=== PATIENT | female | born 1990 | race Caucasian/White ===

== ENCOUNTER 2016-10-24 08:17 | Emergency (ER) | payer OTHER ==
[~2016-10-24] VITALS: Ht 175.3 cm; Wt 108.0 kg
[~2016-10-24 08:17] MED LIST: CEPH500 PO; MACR100C PO; PROM25R PR; PROM25SU8 PO; ZOFR4TAB3 SL
[2016-10-24 08:32] VITALS: BP 96/66; PULSE 100; RESP 16; TEMP 97.9; O2SAT 97
[2016-10-24] MEDS ORDERED: PREN29TA PO (08:34)
--- NOTE | 2016-10-24 09:06 | PD ---
HPI Chief Complaint: ENT Complaint Time Seen by Provider: 08:55 Travel History International Travel<30 days: No Contact w/Intl Traveler<30days: No Traveled to known affect area: No History of Present Illness HPI The patient is a 26-year-old female who is currently 25 weeks who complains of cough and congestion. The patient is a 3 day history of cough and cold symptoms with nasal congestion, sore throat, dry nonproductive cough. The patient also complains of myalgias, but denies any nausea, vomiting, diarrhea, or abdominal pain. Symptoms are moderate, not alleviated with Tylenol, there are no known exacerbating factors. Patient complains of chills and sweats, but is unsure if she is had a fever. The patient is followed by her midlevel provider, Dr. Lewis. [facility] Past Medical History Autoimmune Disease: No Blood Disorders: No Anxiety: Yes Depression: Yes Cardiovascular Problems: No Diminished Hearing: No Gastrointestinal Disorders: No Genitourinary: Yes (FREQ. UTI'S) Musculoskeletal: No Neurologic: Yes Psychiatric: No Reproductive: Yes (OVARIAN CYST) Respiratory: No Immunizations Current: Yes Seizures: Yes (? PSEUDO SZ) Sickle Cell Disease: No ?: LMP: 25 WEEKS : 5 Para: 2 Miscarriage: 2 Past Surgical History Other Surgery: Yes (RIGHT JAW FRACTURE REPAIR) Social History Alcohol Use: No Tobacco Use: No Substance Use: No Allergies-Medications (Allergen,Severity, Reaction): Coded Allergies: No Known Allergies (Unverified , 10/24/16) Reported Meds & Prescriptions Reported Meds & Active Scripts Active Reported Plus Iron 29-1 mg ( Vit-Iron Carbonyl) 1 Tab Tab 1 Tab PO DAILY Review of Systems Except as stated in HPI: all other systems reviewed are Neg General / Constitutional: Positive: Chills, No: Fever HENT: Positive: Sore Throat, Congestion Respiratory: Positive: Cough Gastrointestinal: No: Nausea, Vomiting, Diarrhea, Abdominal Pain Genitourinary: No: Dysuria Musculoskeletal: Positive: Myalgias Physical Exam Narrative GENERAL: Awake, alert, 26-year-old female who appears her stated age and is in no acute respiratory distress. SKIN: Warm and dry. HEAD: Atraumatic. Normocephalic. EYES: Pupils equal and round. No scleral icterus. No injection or drainage. ENT: No nasal bleeding or discharge. Oropharynx reveals erythema but no exudate. TMs are dull with no erythema or bulging. EACs are clear. NECK: Trachea midline. No JVD. Well-healed scar in the right neck over the mandible, no meningeal signs. CARDIOVASCULAR: Regular rate and rhythm. No murmur appreciated. RESPIRATORY: No accessory muscle use. Clear to auscultation. Breath sounds equal bilaterally. MUSCULOSKELETAL: No obvious deformities. No clubbing. No cyanosis. No edema. NEUROLOGICAL: Awake and alert. No obvious cranial nerve deficits. Motor grossly within normal limits. Normal speech. PSYCHIATRIC: Appropriate mood and affect; insight and judgment normal. Data Data Last Documented VS Vital Signs Date Time Temp Pulse Resp B/P Pulse Ox O2 Delivery O2 Flow Rate FiO2 10/24/16 08:54 16 10/24/16 08:32 97.9 100 96/66 97 Orders Influenzae A/B Antigen (10/24/16 09:00) Group A Rapid Strep Screen (10/24/16 09:00) MDM Medical Decision Making Medical Screen Exam Complete: Yes Emergency Medical Condition: Yes Medical Record Reviewed: Yes Interpretation(s) Date/Time Procedure Status Source Growth 10/24/16 09:11 Group A Streptococcus Screen (JOHN) - Final Complete Throat 10/24/16 09:11 Influenza Types A,B Antigen (JOHN) - Final Complete Nasal Aspirate NEGATIVE FOR FLU A AND B ANTIGEN.... Differential Diagnosis Differential diagnosis includes strep pharyngitis, viral pharyngitis, influenza , URI, viral syndrome. Narrative Course Strep screen was sent to lab. Influenza screen was sent to lab. Influenza screen is negative, strep is negative. Patient is advised to take Tylenol as needed, Claritin as needed, and to drink plenty of fluids to stay hydrated. Return if symptoms worsen or progress. Diagnosis Primary Impression: Upper respiratory infection Qualified Code: J06.9 - Viral upper respiratory tract infection Patient Instructions: General Instructions Additional Instructions: Tylenol as needed. Plenty fluids to stay hydrated. Follow-up with your primary physician and/or midlevel provider. Symptomatic treatment. Disposition: 01 DISCHARGE HOME Condition: Stable Kurtis Miranda MD Oct 24, 2016 09:06
== END 2016-10-24 10:30 | disposition home or self-care (01) ==
LOC: PHED 08:17 → PHEFT 10:30
DX: O99.512 Diseases of the respiratory system complicating pregnancy, second trimester (principal); J06.9 Acute upper respiratory infection, unspecified; Z3A.25 25 weeks gestation of pregnancy
CPT/HCPCS: 87081; 87804; 87880; 99283

== ENCOUNTER 2018-01-01 14:53 | Emergency (ER) | payer OTHER ==
[~2018-01-01] VITALS: Ht 175.3 cm; Wt 111.0 kg
[~2018-01-01 14:53] MED LIST changes: -CEPH500 PO; -MACR100C PO; +PREN29TA PO; -PROM25R PR; -PROM25SU8 PO; -ZOFR4TAB3 SL
[2018-01-01 15:03] VITALS: BP 149/81; PULSE 83; RESP 16; TEMP 98.2; O2SAT 99
[2018-01-01] MEDS ORDERED: ZOFR4TAB3 SL (15:11)
[2018-01-01] MEDS ORDERED: AMOX500T2 PO (15:11)
--- NOTE | 2018-01-01 15:12 | PD ---
HPI Chief Complaint: Headache Time Seen by Provider: 14:59 Travel History International Travel<30 days: No Contact w/Intl Traveler<30days: No Traveled to known affect area: No History of Present Illness HPI 27-year-old female notes that yesterday she went to an urgent care in [place] and was diagnosed with a sinus infection and placed on amoxicillin and given Zofran for nausea. She states since then she continues to have a headache and tingling to her left arm. She denies any weakness, speech changes, persistent fever, vomiting or other concurrent complaints. Quality is pressure. Severity is moderate. She denies specific modifying factors other than movement. She denies taking other medication prior to arrival. PFSH Past Medical History Hx Anticoagulant Therapy: No Autoimmune Disease: No Blood Disorders: No Anxiety: Yes Depression: Yes Cardiovascular Problems: No Diminished Hearing: No Gastrointestinal Disorders: No Genitourinary: Yes (FREQ. UTI'S) Musculoskeletal: No Neurologic: Yes Psychiatric: No Reproductive: Yes (OVARIAN CYST) Respiratory: No Immunizations Current: Yes Seizures: Yes (? PSEUDO SZ) Sickle Cell Disease: No ?: Not : 5 Para: 2 Miscarriage: 2 Past Surgical History Other Surgery: Yes (RIGHT JAW FRACTURE REPAIR) Social History Alcohol Use: No Tobacco Use: No Substance Use: No Allergies-Medications (Allergen,Severity, Reaction): Coded Allergies: No Known Allergies (Unverified Adverse Reaction, Unknown, 01/01/18) Reported Meds & Prescriptions Reported Meds & Active Scripts Active Reported Zofran Odt (Ondansetron Odt) 4 Mg Tab 4 Mg SL Q6HR PRN Amoxicillin-Clavulanate 500-125 mg Tab 500 Mg PO TID Review of Systems Except as stated in HPI: all other systems reviewed are Neg Physical Exam Narrative GENERAL: 27-year-old female is well-appearing SKIN: Focused skin assessment warm/dry. HEAD: Atraumatic. Normocephalic. EYES: Pupils equal and round. No scleral icterus. No injection or drainage. ENT: No nasal bleeding or discharge. Mucous membranes pink and moist. NECK: Trachea midline. No JVD. No meningeal signs CARDIOVASCULAR: Regular rate and rhythm. No murmur appreciated. RESPIRATORY: No accessory muscle use. Clear to auscultation. Breath sounds equal bilaterally. GASTROINTESTINAL: Abdomen soft, non-tender, nondistended MUSCULOSKELETAL: No obvious deformities. No clubbing. No cyanosis. No edema. NEUROLOGICAL: Awake and alert. No obvious cranial nerve deficits. Motor grossly within normal limits. Normal speech. PSYCHIATRIC: Appropriate mood and affect; insight and judgment normal. Data Data Last Documented VS Vital Signs Date Time Temp Pulse Resp B/P (MAP) Pulse Ox O2 Delivery O2 Flow Rate FiO2 01/01/18 15:07 16 99 Room Air 01/01/18 15:03 98.2 83 149/81 (103) Orders Orders Ct Brain W/O Iv Contrast(Rout) (01/01/18 ) Ed Discharge Order (01/01/18 16:18) [facility] Medical Decision Making Medical Screen Exam Complete: Yes Emergency Medical Condition: Yes Medical Record Reviewed: Yes (past history confirm) Interpretation(s) ct brain no acute Differential Diagnosis Tension, migraine, sinusitis, intercranial Narrative Course Will check CT brain and reevaluate. Patient agrees if no emergent findings on this to continue current treatment. ct brain no emergent findings, Patient denies any new complaints and states that they are feeling better. Patient happy with care, all questions answered. Patient knows that follow up is incumbent on them and to return to the emergency room immediately if new or worsening symptoms develop. Patient given strict return precautions, vitals reviewed and are normal, agrees to further workup as an outpatient. Diagnosis Primary Impression: Cephalalgia Qualified Codes: R51 - Headache Additional Impression: Tingling of left upper extremity Patient Instructions: General Instructions Additional Instructions: continue home medications, return as needed, alternate tylenol and motrin Med/Other Pt SpecificInfo: No Change to Meds Disposition: 01 DISCHARGE HOME Condition: Stable Celi Guzman MD Jan 01, 2018 15:12
--- NOTE | 2018-01-01 16:14 | RADRPT ---
EXAM DATE/TIME: 01/01/2018 15:58 [facility] COMPARISON: CT BRAIN W/O CONTRAST, July 30, 2008, 8:21. INDICATIONS : Nausea, headache and left upper extremity tingling. RADIATION DOSE: 64.29 CTDIvol (mGy) MEDICAL HISTORY : Seizures. SURGICAL HISTORY : None. ENCOUNTER: Initial ACUITY: 1 day PAIN SCALE: 3/10 LOCATION: cranial TECHNIQUE: Multiple contiguous axial images were obtained of the head. Using automated exposure control and adj ustment of the mA and/or kV according to patient size, radiation dose was kept as low as reasonably a chievable to obtain optimal diagnostic quality images. DICOM format image data is available electro nically for review and comparison. FINDINGS: CEREBRUM: The ventricles are normal for age. No evidence of midline shift, mass lesion, hemorrhage or acute in farction. No extra-axial fluid collections are seen. POSTERIOR FOSSA: The cerebellum and brainstem are intact. The 4th ventricle is midline. The cerebellopontine angle i s unremarkable. EXTRACRANIAL: The visualized portion of the orbits is intact. SKULL: The calvaria is intact. No evidence of skull fracture. CONCLUSION: Normal examination. No evidence of acute infarct, hemorrhage, mass or edema. Stable exam compared to previous study in 2007 Ravin Bocanegra MD on January 01, 2018 at 16:10 Board Certified Radiologist. This report was verified electronically.
== END 2018-01-01 16:55 | disposition home or self-care (01) ==
LOC: PHED 14:53
DX: R51 Headache (principal); R20.2 Paresthesia of skin
CPT/HCPCS: 70450; 99284